=== PATIENT | female | born 1990 | race Hispanic/Latino ===

== ENCOUNTER 2018-12-09 14:04 | Emergency (ER) | payer SELFPAY ==
[2018-12-09 15:17] LABS: Urine Blood 2+ (NEG); Urine Glucose NEGATIVE (NEG); Urine Protein NEGATIVE (NEG); Urine Specific Gravity 1.025 (1.005-1.030); Urine pH 5.5 (5.0-7.0)
[2018-12-09 15:18] LABS: Absolute Lymphocytes (CBC) 2.2 K/uL (0.7-4.9); Basophils % 0.7 % (0-1.3); Hematocrit 40.6 % (36.0-45.0); Lymphocytes % 25.2 % (15.3-44.8); MPV 9.1 fL (7.6-11.3); RBC Red Blood Cell Count 4.38 M/uL (3.86-4.86)
--- NOTE | 2018-12-09 15:32 | RAD REPORT ---
EXAM DESCRIPTION: CT - Head Brain Wo Cont - 12/09/2018 3:26 pm CLINICAL HISTORY: headache, dizziness Headache, drowsiness, dizziness COMPARISON: No comparisons TECHNIQUE: All CT scans are performed using dose optimization technique as appropriate and may inclu de automated exposure control or mA/KV adjustment according to patient size. FINDINGS: No intracranial hemorrhage, hydrocephalus or extra-axial fluid collection.No areas of brai n edema or evidence of midline shift. The paranasal sinuses and mastoids are clear. The calvarium is intact. IMPRESSION: No acute intracranial abnormality.
[2018-12-09 15:34] LABS: Albumin 4.3 g/dL (3.4-5.0); Bilirubin Direct 0.4 mg/dL (0-0.2); Bilirubin Total 1.3 mg/dL (0.2-1.0); Potassium 3.5 mmol/L (3.5-5.1); Protein, Total 7.6 g/dL (6.4-8.2)
[2018-12-09] MEDS ORDERED: DIPHENHYDRAMINE 50 MG/ML VIAL ONE (15:57)
[2018-12-09] MEDS ORDERED: METOCLOPRAMIDE 10 MG/2mL INJ ONE (15:57)
[2018-12-09] MEDS ORDERED: NA CHLORIDE 0.9% 1,000 ML ONE (15:57)
--- NOTE | 2018-12-09 16:50 | EDPHYS ---
Physician Documentation [facility] Name: Sara Mcdaniel Age: 28 yrs Sex: Female : 1990 Arrival Date: 12/09/2018 Time: 14:05 Bed 8 Private MD: ED Physician Rory Earl HPI: 12/09 14:30 This 28 yrs old Female presents to ER via Ambulatory with complaints of jmm Dizziness, Headache, Abdominal Pain. 14:30 The patient complains of pain to the left frontal area, left side of the back of head, jmm left temporal area and left occipital area. Onset: The symptoms/episode began/occurred gradually, today. Associated signs and symptoms: Pertinent positives: dizziness, blurred vision, Pertinent negatives: fever, neck stiffness. The symptoms are alleviated by nothing. the symptoms are aggravated by lights, movement, noise. The patient has experienced similar episodes in the past. This is a 28 year old female with no known chronic medical conditions that presents to the ED with complaints of right sided headache beginning earlier today. Patient also complains of ongoing lower abdominal pain. Patient has had a similar headache in the past. Denies fever, denies neck pain. . Historical: - Allergies: 14:14 No Known Allergies; hb - Home Meds: 14:14 None [Active]; hb - PMHx: 14:14 None; hb - PSHx: 14:14 D \T\ C; hb - Immunization history:: Adult Immunizations up to date. - Social history:: Smoking status: Patient/guardian denies using tobacco. - Ebola Screening: : No symptoms or risks identified at this time. ROS: 14:30 Constitutional: Negative for fever, chills, and weight loss, Cardiovascular: Negative jmm for chest pain, palpitations, and edema, Respiratory: Negative for shortness of breath, cough, wheezing, and pleuritic chest pain. 14:30 Abdomen/GI: Positive for abdominal pain. 14:30 : Positive for urinary symptoms. 14:30 Neuro: Positive for headache. 14:30 All other systems are negative. Exam: 14:30 Constitutional: This is a well developed, well nourished patient who is awake, alert, jmm and in no acute distress. Head/Face: atraumatic. Eyes: EOMI, no conjunctival erythema appreciated ENT: Moist Mucus Membranes Neck: Trachea midline, Supple Chest/axilla: Normal chest wall appearance and motion. 14:30 Back: Normal ROM MS/ Extremity: Moves all extremities, no obvious deformities appreciated, no edema noted to the lower extremities Neuro: Awake and alert, normal gait Psych: Behavior is normal, Mood is normal, Patient is cooperative and pleasant 14:30 Cardiovascular: Rate: normal, Rhythm: regular, Pulses: no pulse deficits are appreciated. 14:30 Respiratory: the patient does not display signs of respiratory distress, Respirations: normal, Breath sounds: are clear throughout. 14:30 Abdomen/GI: Inspection: abdomen appears normal, Bowel sounds: normal, Palpation: soft, nontender, in all quadrants. Vital Signs: 14:14 BP 134 / 82; Pulse 80; Resp 16; Temp 98.5; Pulse Ox 100% on R/A; Weight 54.43 kg; hb Height 5 ft. 4 in. (162.56 cm); Pain 7/10; 15:43 BP 119 / 91; Pulse 69; Resp 17; Temp 97.6(TE); Pulse Ox 100% on R/A; mh5 16:54 BP 107 / 61; Pulse 72; Resp 16; Temp 98.5(TE); Pulse Ox 100% on R/A; mh5 14:14 Body Mass Index 20.60 (54.43 kg, 162.56 cm) hb MDM: 14:30 Patient medically screened. jared 16:47 Data reviewed: vital signs, nurses notes. Counseling: I had a detailed discussion with jared the patient and/or guardian regarding: the historical points, exam findings, and any diagnostic results supporting the discharge/admit diagnosis, lab results, radiology results, the need for outpatient follow up, to return to the emergency department if symptoms worsen or persist or if there are any questions or concerns that arise at home. ED course: Patient is alert and non toxic in appearance. Similar headache in the past, neck is supple, I do not suspect sah or meningitis. Pain relieved in the ED. EKG no prolonged qt. Patient is advised to follow up with pcp and otherwise given strict return precautions. patient understood and agrees with the plan of care. . 12/09 14:40 Order name: Basic Metabolic Panel; Complete Time: 15:36 [facility] 12/09 14:40 Order name: CBC with Diff; Complete Time: 15:36 [facility] 12/09 14:40 Order name: Creatinine for Radiology; Complete Time: 15:36 [facility] 12/09 14:40 Order name: Hepatic Function; Complete Time: 15:36 [facility] 12/09 14:40 Order name: Lipase; Complete Time: 15:36 [facility] 12/09 15:07 Order name: Urine Dipstick--Ancillary (enter results); Complete Time: 15:36 12/09 14:40 Order name: IV Saline Lock; Complete Time: 16:03 [facility] 12/09 14:40 Order name: Labs collected and sent; Complete Time: 16:03 [facility] 12/09 14:40 Order name: EKG - Nurse/Tech; Complete Time: 16:53 [facility] 12/09 15:11 Order name: CT Head Brain wo Cont; Complete Time: 15:36 [facility] 12/09 15:55 Order name: EKG; Complete Time: 15:56 [facility] 12/09 14:41 Order name: Urine Dipstick-Ancillary (obtain specimen); Complete Time: 15:06 [facility] 12/09 14:41 Order name: Urine Test (obtain specimen); Complete Time: 15:06 [facility] Administered Medications: 16:02 Drug: Reglan 10 mg Route: IVP; Site: right antecubital; [facility] 16:58 Follow up: Response: No adverse reaction ph 16:02 Drug: NS 0.9% 1000 ml Route: IV; Rate: 1 bolus; Site: right antecubital; [facility] 16:58 Follow up: Response: No adverse reaction; IV Status: Completed infusion; IV Intake: ph 1000ml 16:02 Drug: diphenhydrAMINE 12.5 mg Route: IVP; Site: right antecubital; [facility] 16:59 Follow up: Response: No adverse reaction ph Disposition: 12/10 09:19 Co-signature as Attending Physician, Rory Earl MD I agree with the assessment and kdr plan of care. Disposition: 12/09/18 16:50 Discharged to Home. Impression: Urinary tract infection, site not specified, Headache. - Condition is Stable. - Discharge Instructions: Migraine Headache, Urinary Tract Infection, Adult. - Prescriptions for Bactrim DS 800- 160 mg Oral Tablet - take 1 tablet by ORAL route every 12 hours for 7 days; 14 tablet. - Medication Reconciliation Form, Thank You Letter, Antibiotic Education, Prescription Opioid Use, Work release form form. - Follow up: Private Physician; When: 2 - 3 days; Reason: Recheck today's complaints, Continuance of care, Re-evaluation by your physician. Signatures: Dispatcher [employer] EDMS Rory Earl MD MD kdr Mickail, Joel, PA PA jmm Hall, Patricia, RN RN Sienna Huertas RN RN Jenny Coulter RN RN [id number] Corrections: (The following items were deleted from the chart) 12/09 17:12 16:50 12/09/2018 16:50 Discharged to Home. Impression: Urinary tract infection, site ph not specified; Headache. Condition is Stable. Forms are Medication Reconciliation Form, Thank You Letter, Antibiotic Education, Prescription Opioid Use. Follow up: Private Physician; When: 2 - 3 days; Reason: Recheck today's complaints, Continuance of care, Re-evaluation by your physician. jared
--- NOTE | 2018-12-09 16:50 | ER ---
Nurse's Notes [facility] Name: Sara Mcdaniel Age: 28 yrs Sex: Female : 1990 Arrival Date: 12/09/2018 Time: 14:05 Bed 8 Private MD: Diagnosis: Urinary tract infection, site not specified;Headache Presentation: 12/09 14:13 Presenting complaint: Lower abdominal pain, nausea, headache, and dizziness x 2 days. hb Transition of care: patient was not received from another setting of care. Onset of symptoms was December 08, 2018. Risk Assessment: Do you want to hurt yourself or someone else? Patient reports no desire to harm self or others. Care prior to arrival: Medication(s) given: Motrin, at 0930 today. 14:13 Method Of Arrival: Ambulatory hb 14:13 Acuity: MILES 3 hb 15:30 Initial Sepsis Screen: Does the patient meet any 2 criteria? No. Patient's initial ph sepsis screen is negative. Does the patient have a suspected source of infection? No. Patient's initial sepsis screen is negative. Historical: - Allergies: 14:14 No Known Allergies; hb - Home Meds: 14:14 None [Active]; hb - PMHx: 14:14 None; hb - PSHx: 14:14 D \T\ C; hb - Immunization history:: Adult Immunizations up to date. - Social history:: Smoking status: Patient/guardian denies using tobacco. - Ebola Screening: : No symptoms or risks identified at this time. Screenin:24 Abuse screen: Denies threats or abuse. Denies injuries from another. Nutritional ph screening: No deficits noted. Tuberculosis screening: No symptoms or risk factors identified. Fall Risk None identified. Assessment: 14:30 General: Appears in no apparent distress. uncomfortable, slender, well groomed, ph Behavior is calm, cooperative, appropriate for age. Pain: Complains of pain in left side of head and lower abdomen. Neuro: Level of Consciousness is awake, alert, obeys commands, Oriented to person, place, time, situation, Reports dizziness, headache in left. Cardiovascular: Capillary refill. Cardiovascular: Capillary refill < 3 seconds in bilateral fingers Patient's skin is warm and dry. Respiratory: Airway is patent Respiratory effort is even, unlabored, Respiratory pattern is regular, symmetrical. GI: Reports lower abdominal pain, nausea. : Reports pain in suprapubic area. Derm: Skin is intact, is healthy with good turgor, Skin is pink, warm \T\ dry. Musculoskeletal: Circulation, motion, and sensation intact. Range of motion: intact in all extremities. 15:23 Reassessment: Patient appears in no apparent distress at this time. Patient and/or ph family updated on plan of care and expected duration. Pain level reassessed. Patient is alert, oriented x 3, equal unlabored respirations, skin warm/dry/pink. Pt taken to CT. Vital Signs: 14:14 BP 134 / 82; Pulse 80; Resp 16; Temp 98.5; Pulse Ox 100% on R/A; Weight 54.43 kg; hb Height 5 ft. 4 in. (162.56 cm); Pain 7/10; 15:43 BP 119 / 91; Pulse 69; Resp 17; Temp 97.6(TE); Pulse Ox 100% on R/A; mh5 16:54 BP 107 / 61; Pulse 72; Resp 16; Temp 98.5(TE); Pulse Ox 100% on R/A; mh5 14:14 Body Mass Index 20.60 (54.43 kg, 162.56 cm) hb ED Course: 14:05 Patient arrived in ED. as 14:14 Triage completed. hb 14:14 Arm band placed on. hb 14:29 Tito Tavares PA is PHCP. [facility] 14:29 Rory Earl MD is Attending Physician. [facility] 14:37 Mary Fuentes, DEEPA is Primary Nurse. ph 15:07 Patient has correct armband on for positive identification. Placed in gown. Bed in low mh5 position. Call light in reach. Warm blanket given. Pulse ox on. NIBP on. 15:07 Urine collected: clean catch specimen, clear. mh5 15:27 CT Head Brain wo Cont In Process Unspecified. EDMS 16:14 EKG done, by biotech production specialist. reviewed by Tito NORIEGA. sm3 17:12 No provider procedures requiring assistance completed. IV discontinued, intact, ph bleeding controlled, No redness/swelling at site. Pressure dressing applied. Administered Medications: 16:02 Drug: Reglan 10 mg Route: IVP; Site: right antecubital; jl7 16:58 Follow up: Response: No adverse reaction ph 16:02 Drug: NS 0.9% 1000 ml Route: IV; Rate: 1 bolus; Site: right antecubital; jl7 16:58 Follow up: Response: No adverse reaction; IV Status: Completed infusion; IV Intake: ph 1000ml 16:02 Drug: diphenhydrAMINE 12.5 mg Route: IVP; Site: right antecubital; jl7 16:59 Follow up: Response: No adverse reaction ph Intake: 16:58 IV: 1000ml; Total: 1000ml. ph Outcome: 16:50 Discharge ordered by . jared 17:12 Patient left the ED. ph 17:12 Discharged to home ambulatory. ph 17:12 Condition: improved 17:12 Discharge instructions given to patient, Instructed on discharge instructions, follow up and referral plans. medication usage, Demonstrated understanding of instructions, follow-up care, medications, Prescriptions given X 1. Signatures: Dispatcher [employer] EDMS Tito Tavares PA PA jmm Martinez, Amelia as Hall, Patricia, RN DEEPA Sienna Huertas, RN Arin Ferreira 5 Jenny Coulter RN RN 7 Macy Darden [facility]
[2018-12-09 17:17] VITALS: O2SAT 100
[2018-12-09 17:19] VITALS: BP 107/61; TEMP 98.5
--- NOTE | 2018-12-09 22:08 | EKG ---
Test Date: 2018-12-09 Test Time: 16:10:30 [employer] Operator: FERNANDA MEASUREMENT RESULTS: Intervals: Rate: 70 MT: 174 QRSD: 78 QT: 412 QTc: 444 [place]: P: 62 MT: 174 QRS: 42 T: 44 INTERPRETIVE STATEMENTS: Normal sinus rhythm Normal ECG No previous ECG available for comparison Electronically Signed On 12-09-18 22:08:27 CDT by Eddie Rick
== END 2018-12-09 17:12 | disposition home or self-care (01) ==
LOC: ER 14:04
DX: N39.0 Urinary tract infection, site not specified (principal); R51 Headache
CPT/HCPCS: 36415; 70450; 80048; 80076; 81003; 83690; 85025; 93005; 96361; 96374; 96375; 99284; J1200; J2765; J7030